=== PATIENT | male | born 1995 ===

== ENCOUNTER 2017-09-29 06:07 | Emergency (ER) | payer MEDICAID ==
[2017-09-29 06:13] VITALS: BP 114/68; PULSE 62; RESP 18; TEMP 98.8; O2SAT 98
--- NOTE | 2017-09-29 07:18 | C.PDOC ---
History Of Present Illness 22 yo male, presents with penile pain. as per pt, was "masturbating last night" . pt reports he woke up several hours later, with a "feeling of tightness" to penile shaft. pt states pain was mild. yenifer hearing any "cracking noises". states he has been able to urinate after w/o difficulty. no fevers, no discharge , no other complaints. Time Seen by Provider: 09/29/17 07:02 Chief Complaint (Nursing): Male Genitourinary Past Medical History Reviewed: Historical Data, Nursing Documentation, Vital Signs Vital Signs: Last Vital Signs Temp 98.8 F 09/29/17 06:13 Pulse 62 09/29/17 06:13 Resp 18 09/29/17 06:13 BP 114/68 09/29/17 06:13 Pulse Ox 98 09/29/17 07:20 Family History: States: Unknown Family Hx - Social History Hx Alcohol Use: No Hx Substance Use: No - Immunization History Hx Tetanus Toxoid Vaccination: No Hx Influenza Vaccination: No Hx Pneumococcal Vaccination: No Review Of Systems Except As Marked, All Systems Reviewed And Found Negative. Genitourinary: Positive for: Penile Pain Physical Exam - Physical Exam Appears: Well, No Acute Distress Skin: Normal Color, Warm, Dry Eye(s): bilateral: Normal Inspection, PERRL, EOMI Nose: Normal Throat: Normal Neck: Normal Cardiovascular: Rhythm Regular Respiratory: Normal Breath Sounds Gastrointestinal/Abdominal: Normal Exam Back: Normal Inspection Male Genital: No Testicular Tenderness, No Testicular Swelling, No Circumcised, Other ((+)minimal swelling to midshaft penis) Extremity: Normal ROM ED Course And Treatment O2 Sat by Pulse Oximetry: 98 Medical Decision Making Medical Decision Making: suspect mild penile trauma, hematoma - pt able to urinate w/o difficulty- pt offered US to exlude a penile fracture, although less likely, given exam and history- pt declines, specifically asking for dc. states he will return with any worsening. Disposition - Disposition Referrals: Caroline Velazquez MD [Staff Provider] - Nikita Velazquez MD [Staff Provider] - Disposition: HOME/ ROUTINE Disposition Time: 07:18 Condition: STABLE Additional Instructions: follow up with specialist. return to er with worsening symptoms or concerns. Instructions: [facility] (ED) Forms: Arachno (Malagasy) - Clinical Impression Clinical Impression: Penile pain
== END 2017-09-29 07:20 | disposition home or self-care (01) ==
LOC: C.ER 06:07
DX: N48.89 Other specified disorders of penis (principal)